=== PATIENT | female | born 1990 | race Caucasian/White ===

== ENCOUNTER 2016-10-23 17:47 | Emergency (ER) | payer BC, OTHER ==
[2016-10-23 19:25] VITALS: BP 117/72
[2016-10-23] MEDS ORDERED: Ethyl Chloride SPRAY (NF) BTL ONE (19:39)
[2016-10-23] MEDS ORDERED: Azithromycin TAB* 250 MG PO ONE (19:54)
--- NOTE | 2016-10-23 20:13 | UC ---
Skin Complaint HPI - HPI Summary HPI Summary: TWO WEEKS AGO HAD CUT WHILE COOKING TO TIP OF LEFT INDEX FINGER. OVER THE LAST WEEK HAS DEVELOPED TENDER BLISTER ON LEFT INDEX FINGER, THAT CONTINUES TO HURT WITH TYPING - History of Current Complaint Chief Complaint: UC Time Seen by Provider: 10/23/16 19:18 Stated Complaint: BUMP ON FINGER Hx Obtained From: Patient Hx Last Menstrual Period: current Onset/Duration: Sudden Onset, Lasting Weeks, Worse Since - LAST WEEK Skin Exposure Onset/Duration: Weeks Ago Onset Severity: Mild Current Severity: Mild Location: Discrete - LEFT INDEX FINGER Aggravating: Touch Alleviating: Nothing Associated Signs & Symptoms: Positive: Tenderness. Negative: Fever, Chills, Drainage, Bruising, Red Streaks, Joint Swelling Related History: Trauma - Allergy/Home Medications Allergies/Adverse Reactions: Allergies Allergy/AdvReac Type Severity Reaction Status Date / Time Amoxicillin Allergy Severe Rash Verified 10/23/16 19:17 Citalopram [From Celexa] Allergy Severe DEPRESSION Verified 10/23/16 19:17 Codeine Allergy Severe HEART Verified 10/23/16 19:17 RACING Lamotrigine [From Lamictal] Allergy Severe HALLUCINATIONS, Verified 10/23/16 19: 17 NAUSEA Levetiracetam [From Keppra] Allergy Severe HALLUCINATI Verified 10/23/16 19:17 ON Topiramate Allergy Severe DEPRESSION, Verified 10/23/16 19:17 INCREASED SEIZURE ACTIVITY DEPRESSION MED - ?NAME Allergy Severe "WASN'T Uncoded 10/23/16 19:17 WORK", ITCHING, ABD PAIN Home Medications: Home Medications [id number] [Excedrin Migraine 250-250-65 mg] 1 tab PO DAILY PRN 10/23/16 [History Confirmed 10/23/16] Review of Systems Constitutional: Negative Skin: Other - 5mm X 2mm BLISTER TO LEFT INDEX FINGER Eyes: Negative ENT: Negative Respiratory: Negative Cardiovascular: Negative Gastrointestinal: Negative Genitourinary: Negative Motor: Negative Neurovascular: Negative Musculoskeletal: Negative Neurological: Negative Psychological: Negative All Other Systems Reviewed And Are Negative: Yes PMH/Surg Hx/FS Hx/Imm Hx Previously Healthy: Yes Respiratory History Of: Reports: Asthma - EXERCISE-INDUCED - Surgical History Surgical History: Yes Surgery Procedure, Year, and Place: WISDOM TEETH EXTRACTION - Family History Known Family History: Negative: Diabetes - Social History Occupation: Employed Full-time Lives: With Family Alcohol Use: Rare Substance Use Type: None Smoking Status (MU): Never Smoked Tobacco - Immunization History Most Recent Influenza Vaccination: fall 2015 Physical Exam Triage Information Reviewed: Yes Appearance: Well-Appearing, No Pain Distress, Well-Nourished Vital Signs: Initial Vital Signs Temp 98.9 F 10/23/16 19:20 Pulse 72 10/23/16 19:20 Resp 16 10/23/16 19:20 BP 117/72 10/23/16 19:20 Pulse Ox 98 10/23/16 19:20 Vital Signs Reviewed: Yes Eye Exam: Normal Eyes: Positive: Conjunctiva Clear ENT Exam: Normal ENT: Positive: Normal ENT inspection, Hearing grossly normal, Pharynx normal, TMs normal Dental Exam: Normal Neck exam: Normal Neck: Positive: Supple, Nontender, No Lymphadenopathy Respiratory Exam: Normal Respiratory: Positive: Chest non-tender, Lungs clear, Normal breath sounds, No respiratory distress, No accessory muscle use Cardiovascular Exam: Normal Cardiovascular: Positive: RRR, No Murmur, Pulses Normal Abdominal Exam: Normal Musculoskeletal Exam: Normal Musculoskeletal: Positive: Strength Intact, ROM Intact, No Edema Neurological Exam: Normal Psychological Exam: Normal Skin: Positive: Other - BLISTER LEFT INDEX FINGER - Additional Comments NEEBLESTICK TO BLISTER ON LEFT INDEX FINGER, BLOOD AND CLEAR LIQUID EXPRESSED, CULTURE OBTAINED Course/Dx - Differential Diagnoses - Skin Complaint Differential Diagnoses: Abscess, Cellulitis, Local Allergic Reaction, MRSA, Varicella Zoster, Viral Exanthem, Other - HERPETIC HÉCTOR - Diagnoses Provider Diagnoses: ABSCESS LEFT DISTAL SECOND FINGER Discharge - Discharge Plan Condition: Stable Disposition: HOME Prescriptions: Azithromycin TAB* [Zithromax TAB (Z-BRIANNE) 250 mg #6 tabs] 250 mg PO DAILY #4 tab Patient Education Materials: Abscess (ED) Referrals: Paloma Babin MD [Primary Care Provider] -
== END 2016-10-23 20:01 | disposition home or self-care (01) ==
LOC: UCEAST 17:47
DX: L02.512 Cutaneous abscess of left hand (principal); Z88.5 Allergy status to narcotic agent; Z88.0 Allergy status to penicillin; Z88.8 Allergy status to other drugs, medicaments and biological substances
CPT/HCPCS: 10060; 87070; 87205; 99212; A9270-GY; G0463